=== PATIENT | female | born 1975 | race Caucasian/White ===

== ENCOUNTER 2020-07-22 15:23 | Emergency (ER) | payer MEDICAID ==
[~2020-07-22] VITALS: Ht 165.1 cm; Wt 59.0 kg
--- NOTE | 2020-07-22 15:45 | NUR ---
"started having sharp pains on chest area around 10am still there. Having a lot of stress and feel anxious" Patient a/ox4, breathing even and unlabored, no sob noted, needs attended.
[2020-07-22] MEDS ORDERED: IBUPROFEN 600 MG TABLET PO ONE (16:30)
[2020-07-22] MEDS ORDERED: IBUPROFEN 600 MG TABLET ONE (16:34)
[2020-07-22] MEDS ORDERED: ACETAMINOPHEN ES 500 MG TABLET ONE (17:07)
--- NOTE | 2020-07-22 17:14 | NUR ---
Patient a/ox4, breathing even and unlabored. No sob noted. Ambulatory with steady gait. Patient discharged to home in stable condition. Written and verbal after care instructions given. Patient verbalizes understanding of instruction.
[2020-07-22 17:16] VITALS: BP 132/84
[2020-07-22] MEDS ORDERED: ACETAMINOPHEN ES 500 MG TABLET PO ONE (17:30)
== END 2020-07-22 17:17 | disposition home or self-care (01) ==
LOC: ER 15:33
DX: R07.89 Other chest pain (principal)
CPT/HCPCS: 71045-TC

== ENCOUNTER 2024-09-14 22:27 | Emergency (ER) | payer MEDICAID, OTHER ==
[~2024-09-14] VITALS: Ht 162.6 cm; Wt 49.9 kg
[2024-09-14 23:37] VITALS: TEMP 98.1
[2024-09-14] MEDS ORDERED: IBUPROFEN 400 MG TABLET ONE (23:43)
[2024-09-14] MEDS: IBUPROFEN 400 MG TABLET PO ONE (23:47)
[2024-09-15 00:39] VITALS: BP 134/73; O2SAT 98
== END 2024-09-15 00:39 | disposition home or self-care (01) ==
LOC: ER 22:29
DX: R07.81 Pleurodynia (principal)
CPT/HCPCS: 71100-TC